=== PATIENT | female | born 1975 | race Caucasian/White ===

== ENCOUNTER 2016-10-15 16:19 | Emergency (ER) | payer OTHER ==
[2016-10-15 16:43] VITALS: BP 116/60
[2016-10-15] MEDS ORDERED: LIDOCAINE HCL 1,000 MG/50 ML VIAL ONE (17:06)
--- NOTE | 2016-10-15 17:24 | ERNOTE ---
Lower Extremity HPI - Narrative Date of Service: 10/15/16 - General Lower Extremities Pain: 1st toe: left Time Seen by Provider: 10/15/16 16:59 Source: patient, RN notes reviewed Exam Limitations: no limitations - Immun/Allergies/Home Medications Immunizations: IMMUNIZATION HX Immunizations Up to Date Yes History of Influenza Vaccine No Hx Pneumococcal Vaccination No Allergies/Adverse Reactions: Allergies Allergy/AdvReac Type Severity Reaction Status Date / Time codeine Allergy Hives Verified 10/15/16 16:43 Home Medications: HOME MEDICATIONS NK [No Home Medication] 10/15/16 [Last Taken Unknown] - History of Present Illness Narrative: 41 y/o female ambulatory to the ED for an injury to her left great toenail. She was shopping at [employer] when she caught the nail on the edge of a box, causing a partial nail avulsion. Occurred: this afternoon Location of Incident: other Other Injuries: Reports: none Prior Treament: Denies: recently seen, similar symptoms before Review of Systems - Review of Systems Constitutional: Absent: recent illness, fever, chills EYE: Present: no symptoms reported ENT: Present: no symptoms reported Respiratory: Present: no symptoms reported Cardiology: Present: no symptoms reported Gastrointestinal/Abdominal: Present: no symptoms reported Genitourinary: Present: no symptoms reported Musculoskeletal: Absent: joint pain, joint swelling Skin: Absent: rash, lesions, lumps, change in color Neurological: Absent: weakness, numbness, tingling Endocrine: Present: no symptoms reported Hematologic/Lymphatic: Absent: easy bruising, easy bleeding Psych: Present: no symptoms reported - Patient's Past Medical History Patient History - Medical: No pertinent hx Patient History - Cardiac/Respiratory: No pertinent hx Patient History - Cancer: No Hx of Cancer Patient History - Surgical Procedures: T & A Patient History - Other: None LMP (females 10-50): pt states unknown - Social History Living Situations: home Abuse History: No History of abuse Psych History: Hx of Anxiety Smoking Status: Former smoker Alcohol Use: rarely Drug Use: none - Immunizations Immunizations Up to Date: Yes Hx Pneumococcal Vaccination: No History of Influenza Vaccine: No Physical Exam - Physical Exam General Appearance: Present: wd/wn, alert, no apparent distress Head Exam: Present: normal inspection, no evidence of injury Respiratory: Present: no respiratory distress, no accessory muscle use Cardiovascular/Chest: Present: normal peripheral pulses Peripheral Pulses: N=norm/S=strong/W=weak/B=bound/A=absent: Dorsalis-pedis (R): Strong, Dorsalis-pedis (L): Strong Extremity Exam: Present: normal except - - Left great toenail avulsed, normal range of motion, no edema Neurological Exam: Present: alert, oriented, normal mood/affect, no motor/ sensory deficits Skin Exam: Present: normal color, warm/dry ED Progress - Vital Signs Patient's Vital Signs:: I have reviewed the patient's vital signs. Vital Signs: Vital Signs 10/15/16 16:37 Temperature 36.4 C L Pulse Rate 74 Respiratory 18 Rate Blood Pressure 116/60 O2 Sat by Pulse 98 Oximetry - Progress/Reassessment Chief Complaint: Foot Injury/Pain Progress:: Improved Plan - Plan Plan: Digital block left great toe with 2% lidocaine 10 ml. Foot soaked in warm water and chlorhexidine. Nail only attached at medial proximal corner, nail grasped with scissors and removed without difficulty. Nail bed cleaned thoroughly with chlorhexidine. Minimal bleeding. Bacitracin and dressing applied. Patient tolerated well. Departure Clinical Impression: Avulsion of toenail of left foot - Departure Disposition: Home self-care Condition: Good Instructions: Fingernail or Toenail Removal, Care After, Form - Excuse from Work, School, or Physical Activity Referrals: Mell Arias MD [Primary Care Provider] -
== END 2016-10-15 17:55 | disposition home or self-care (01) ==
LOC: ER 16:19
PROC: 0HDRXZZ Extraction of Toe Nail, External Approach (ICD-10-PCS; principal; 2016-10-15)
DX: S91.202A Unspecified open wound of left great toe with damage to nail, initial encounter (principal); W22.8XXA Striking against or struck by other objects, initial encounter; Y93.9 Activity, unspecified; Y92.512 Supermarket, store or market as the place of occurrence of the external cause; Y99.9 Unspecified external cause status